=== PATIENT | male | born 1955 | race Hispanic/Latino ===

== ENCOUNTER 2018-08-20 05:55 | Emergency (ER) | payer SELFPAY ==
[~2018-08-20] VITALS: Ht 170.2 cm; Wt 83.9 kg
--- NOTE | 2018-08-20 06:05 | NUR ---
PATIENT IN BATHROOM WHEN CALLED TO [facility]
--- NOTE | 2018-08-20 07:42 | Diagnostic Imaging Report ---
EXAMINATION: CHEST 2 VIEWS INDICATION: Chest pain ^COUGH SOB ^[id number] ^[id number] COMPARISON: None FINDINGS: PA and lateral views TUBES and LINES: None. LUNGS: Lungs are well inflated. There is no evidence of pneumonia or pulmonary edema. PLEURA: No pleural effusion or pneumothorax. HEART AND MEDIASTINUM: The cardiomediastinal silhouette is unremarkable. BONES AND SOFT TISSUES: Mild degenerative changes of the spine. Cervical fusion hardware is incompletely imaged. No focal osseous lesions. Soft tissues are unremarkable. UPPER ABDOMEN: No free air under the diaphragm. Cholecystectomy clips are present. IMPRESSION: No acute thoracic abnormality. Signed by: Dr. Martha Galicia MD on 08/20/2018 7:39 AM
--- NOTE | 2018-08-20 08:32 | NUR ---
DR. HOWARD ELNOHEMITING PT IN TRIAGE.
[2018-08-20 08:47] VITALS: BP 142/87
== END 2018-08-20 08:54 | disposition home or self-care (01) ==
LOC: ER 05:55
DX: R50.9 Fever, unspecified (principal); R05 Cough; R07.89 Other chest pain; J11.1 Influenza due to unidentified influenza virus with other respiratory manifestations
CPT/HCPCS: 71046; 87400; 99283

== ENCOUNTER 2021-04-27 18:41 | Emergency (ER) | payer MEDICARE ==
[~2021-04-27] VITALS: Ht 170.2 cm; Wt 83.9 kg
[2021-04-27] MEDS ORDERED: ENOXAPARIN SODIUM INJ 100 MG/ML SYR SC ONE (23:09)
[2021-04-27] MEDS ORDERED: METOPROLOL TARTRATE INJ 1 MG/ML VIAL ONE (23:09)
== END 2021-04-27 22:45 | disposition home or self-care (01) ==
LOC: FSED 18:55
DX: R42 Dizziness and giddiness (principal); R53.1 Weakness; R18.8 Other ascites; K74.60 Unspecified cirrhosis of liver; C22.0 Liver cell carcinoma; E11.9 Type 2 diabetes mellitus without complications; I10 Essential (primary) hypertension; E78.5 Hyperlipidemia, unspecified
CPT/HCPCS: 70450; 71046; 80048; 80053; 80076; 81003; 85025; 93005; 99284; J1650

== ENCOUNTER 2021-08-11 01:59 | Emergency (ER) | payer MEDICARE ==
[~2021-08-11] VITALS: Ht 167.6 cm; Wt 69.4 kg
[2021-08-11] MEDS ORDERED: VANCOCIN HCL250 MG PO (02:43)
[2021-08-11] MEDS ORDERED: SODIUM CHLORIDE 0.9% 100 ML ONE (03:25)
== END 2021-08-11 02:30 | disposition home or self-care (01) ==
LOC: ER 02:07 → MERGE 02:07 → ER 02:30
DX: K74.60 Unspecified cirrhosis of liver (principal); R18.8 Other ascites; Z90.49 Acquired absence of other specified parts of digestive tract; F17.200 Nicotine dependence, unspecified, uncomplicated; Z71.6 Tobacco abuse counseling
CPT/HCPCS: 99282; J7050

== ENCOUNTER 2021-08-13 15:17 | Emergency (ER) | payer MEDICARE ==
[~2021-08-13] VITALS: Ht 167.6 cm; Wt 59.0 kg
[~2021-08-13 15:17] MED LIST: VANCOCIN HCL250 MG PO
[2021-08-13] MEDS ORDERED: IOPAMIDOL 370 MG/ML 200 ML INFUS..BTL INJ ONE (16:06)
[2021-08-13] MEDS ORDERED: SODIUM CHLORIDE 0.9% 50ML 50 ML ONE (16:06)
[2021-08-13] MEDS ORDERED: DIATRIZOATE MEGL/DIATRIZOA SOD 30 ML BTL PO ONE (16:06)
[2021-08-13] MEDS ORDERED: MIRALAX17 GM PO (18:25)
[2021-08-13 18:40] VITALS: BP 133/79
== END 2021-08-13 18:46 | disposition home or self-care (01) ==
LOC: FSED 15:20
DX: K59.00 Constipation, unspecified (principal); I10 Essential (primary) hypertension; E11.9 Type 2 diabetes mellitus without complications; Z90.49 Acquired absence of other specified parts of digestive tract
CPT/HCPCS: 74177; 80053; 85025; 99284; Q9967